=== PATIENT | female | born 1970 | race Caucasian/White ===

== ENCOUNTER 2017-05-17 19:20 | Emergency (ER) | payer SELFPAY ==
[2017-05-17] MEDS: FLUORESCEIN OPHTH TEST STRIP. OU (20:04)
[2017-05-17] MEDS: TETRACAINE 0.5% OPHTH SOLUTION 4ML BOTTLE. OU (20:04)
== END 2017-05-17 20:51 | disposition home or self-care (01) ==
LOC: ER 19:20
DX: S05.01XA Injury of conjunctiva and corneal abrasion without foreign body, right eye, initial encounter (principal); H57.12 Ocular pain, left eye; Z88.8 Allergy status to other drugs, medicaments and biological substances; X58.XXXA Exposure to other specified factors, initial encounter; Y93.89 Activity, other specified; Y92.89 Other specified places as the place of occurrence of the external cause; Y99.8 Other external cause status
CPT/HCPCS: 99283